=== PATIENT | male | born 1950 | race Caucasian/White ===

== ENCOUNTER 2024-04-09 08:31 | Outpatient (CLI) | payer OTHER | END 2024-04-09 08:40 | disposition home or self-care (01) | LOC: TOM 08:31 | PROVIDERS: ATTEND Internal Medicine Gastroenterology | DX: K56.609 Unspecified intestinal obstruction, unspecified as to partial versus complete obstruction (principal); C61 Malignant neoplasm of prostate; R19.5 Other fecal abnormalities ==